=== PATIENT | male | born 1960 | race Two or more races ===

== ENCOUNTER 2021-04-07 08:13 | Outpatient (CLI) | payer OTHER | END 2021-04-07 08:14 | disposition home or self-care (01) | LOC: NUCLEAR 08:13 | PROVIDERS: ATTEND Internal Medicine Hematology & Oncology | DX: C83.35 Diffuse large B-cell lymphoma, lymph nodes of inguinal region and lower limb (principal) | CPT/HCPCS: 78816; A9552 ==

== ENCOUNTER → 2021-05-03 | Day surgery (SDC) | payer OTHER | END | disposition home or self-care (01) | LOC: ADM 04-28 08:00 → CIR.AMB 06:55 | PROVIDERS: ATTEND Specialist | DX: C83.55 Lymphoblastic (diffuse) lymphoma, lymph nodes of inguinal region and lower limb (principal); Z20.822 Contact with and (suspected) exposure to COVID-19 | CPT/HCPCS: 36561; C1751 ==

== ENCOUNTER 2021-09-27 08:56 | Outpatient (CLI) | payer OTHER | END 2021-09-27 08:57 | disposition home or self-care (01) | LOC: NUCLEAR 08:56 | PROVIDERS: ATTEND Internal Medicine Hematology & Oncology | DX: I07.2 Rheumatic tricuspid stenosis and insufficiency (principal) ==

== ENCOUNTER 2021-11-16 07:17 | Outpatient (CLI) | payer OTHER | END 2021-11-16 07:18 | disposition home or self-care (01) | LOC: NUCLEAR 07:17 | PROVIDERS: ATTEND Internal Medicine Hematology & Oncology | DX: C83.38 Diffuse large B-cell lymphoma, lymph nodes of multiple sites (principal) | CPT/HCPCS: 78812; A9552 ==

== ENCOUNTER 2022-01-09 14:40 | Outpatient (CLI) | payer OTHER | END 2022-01-09 14:46 | disposition home or self-care (01) | LOC: SONOGRAMA 14:40 | PROVIDERS: ATTEND Internal Medicine Hematology & Oncology | DX: R19.09 Other intra-abdominal and pelvic swelling, mass and lump (principal); C83.38 Diffuse large B-cell lymphoma, lymph nodes of multiple sites ==

== ENCOUNTER 2022-03-24 08:49 | Outpatient (CLI) | payer OTHER | END 2022-03-24 23:00 | disposition home or self-care (01) | LOC: LAB 08:49 | PROVIDERS: ATTEND Specialist | DX: Z53.9 Procedure and treatment not carried out, unspecified reason (principal) ==

== ENCOUNTER 2022-03-28 06:32 | Day surgery (SDC) | payer OTHER | END 2022-03-28 16:10 | disposition home or self-care (01) | LOC: CIR.AMB 06:32 | PROVIDERS: ATTEND Specialist | DX: T82.598A Other mechanical complication of other cardiac and vascular devices and implants, initial encounter (principal); C83.35 Diffuse large B-cell lymphoma, lymph nodes of inguinal region and lower limb; Z86.16 Personal history of COVID-19 ==

== ENCOUNTER 2022-06-13 08:57 | Outpatient (CLI) | payer OTHER | END 2022-06-13 08:58 | disposition home or self-care (01) | LOC: LAB 08:57 | PROVIDERS: ATTEND Radiology Diagnostic Radiology | DX: C83.38 Diffuse large B-cell lymphoma, lymph nodes of multiple sites (principal) ==

== ENCOUNTER 2022-06-28 07:12 | Outpatient (CLI) | payer OTHER | END 2022-06-28 07:24 | disposition home or self-care (01) | LOC: TOM 07:12 | PROVIDERS: ATTEND Internal Medicine Hematology & Oncology | DX: C83.38 Diffuse large B-cell lymphoma, lymph nodes of multiple sites (principal); L04.3 Acute lymphadenitis of lower limb | CPT/HCPCS: 72193; Q9965 ==

== ENCOUNTER 2022-09-05 14:57 | Outpatient (CLI) | payer OTHER | END 2022-09-05 14:59 | disposition home or self-care (01) | LOC: LAB 14:57 | PROVIDERS: ATTEND Radiology Diagnostic Radiology | DX: C83.00 Small cell B-cell lymphoma, unspecified site (principal) ==

== ENCOUNTER 2022-09-13 07:15 | Outpatient (CLI) | payer OTHER | END 2022-09-13 07:20 | disposition home or self-care (01) | LOC: MRI 07:15 | PROVIDERS: ATTEND Internal Medicine Hematology & Oncology | DX: C83.38 Diffuse large B-cell lymphoma, lymph nodes of multiple sites (principal); C83.05 Small cell B-cell lymphoma, lymph nodes of inguinal region and lower limb | CPT/HCPCS: 73723; Q9965; 73719 ==

== ENCOUNTER 2022-09-25 08:36 | Inpatient (IN) | payer OTHER ==
[~2022-09-25] VITALS: Ht 71.1 cm; Wt 92.1 kg
[2022-09-28] MEDS ORDERED: ATORVASTATIN CA20 MG (08:50)
[2022-09-28] MEDS ORDERED: TRAMADOL HCL50 MG (08:50)
[2022-09-28] MEDS ORDERED: SULINDAC200 MG (08:50)
[2022-09-28] MEDS ORDERED: GABAPENTIN300 M2 (08:50)
[2022-09-29] MEDS ORDERED: GABAPENTIN250 MG/5 M PO (13:36)
== END 2022-09-29 14:09 | disposition home or self-care (01) | DRG 841 ==
LOC: ER 08:36 → SEC-K 14:06 → MEDJ 16:46
PROVIDERS: ADMIT Internal Medicine Hematology & Oncology; ATTEND Internal Medicine Hematology & Oncology
PROC: 02HV33Z Insertion of Infusion Device into Superior Vena Cava, Percutaneous Approach (ICD-10-PCS; principal; 2022-09-26)
DX: C83.38 Diffuse large B-cell lymphoma, lymph nodes of multiple sites (principal); T79.A22A Traumatic compartment syndrome of left lower extremity, initial encounter; G89.3 Neoplasm related pain (acute) (chronic); F43.20 Adjustment disorder, unspecified; F45.42 Pain disorder with related psychological factors

== ENCOUNTER 2022-10-30 16:58 | Inpatient (IN) | payer OTHER ==
[~2022-10-30] VITALS: Ht 167.6 cm; Wt 81.6 kg
[~2022-10-30 16:58] MED LIST: ATORVASTATIN CA20 MG; GABAPENTIN250 MG/5 M PO; GABAPENTIN300 M2; SULINDAC200 MG; TRAMADOL HCL50 MG
--- NOTE | 2022-10-30 17:25 | NUR ---
PACIENTE ALERTA Y ORIENTADO X3, REFIERE TENER UN LINFOMA EN LA PIERNA I[place]QU[place]. SE OBSERVA LA MISMA CON EDEMA, ERITEMA Y SECRECIONES. SE MONITOREAN VS Y SE UBICA
--- NOTE | 2022-10-30 18:53 | NUR ---
SE RECIBE PTE ALERTA ORIENTADO X3.CONECTADO A MONITOR CARDIACO HR-88(SINUSAL).SE OLGA MUESTRAS DE LABORATORIO USANDO MEDIDAS ASEPTICAS.SE ADMINISTRAN MEDICAMENTOS GEMINI ORDEN MEDICA.PTE EVALUADO POR DR.MORALES CHE.SE ORIENTA PTE SOBRE OBJETIVO DE [place] MEDICO.MANEJADO POR YARA ALVAREZ.
[2022-10-31] MEDS ORDERED: GABAPENTIN300 M2 (15:49)
[2022-10-31] MEDS ORDERED: SULINDAC200 MG (15:49)
[2022-10-31] MEDS ORDERED: TRAMADOL HCL50 MG (15:49)
[2022-10-31] MEDS ORDERED: ATORVASTATIN CA20 MG (15:49)
[2022-11-15] MEDS ORDERED: NEURONTIN600 MG PO (09:03)
[2022-11-15] MEDS ORDERED: BENZONATATE200 M1 PO (09:03)
[2022-11-15] MEDS ORDERED: LEVOFLOXACIN750 MG PO (09:05)
[2022-11-15] MEDS ORDERED: MORPHINE S10 MG/5 ML PO (09:08)
== END 2022-11-15 09:29 | disposition home or self-care (01) | DRG 580 ==
LOC: ER 16:58 → SEC-K 19:52 → SURH 19:52
PROVIDERS: ADMIT Internal Medicine Hematology & Oncology; ATTEND Internal Medicine Hematology & Oncology
PROC: BW21YZZ Computerized Tomography (CT Scan) of Abdomen and Pelvis using Other Contrast (ICD-10-PCS; 2022-10-30)
PROC: 0JBN3ZZ Excision of Right Lower Leg Subcutaneous Tissue and Fascia, Percutaneous Approach (ICD-10-PCS; principal; 2022-11-01)
PROC: 0JBN3ZZ Excision of Right Lower Leg Subcutaneous Tissue and Fascia, Percutaneous Approach (ICD-10-PCS; 2022-11-07)
PROC: BQ34ZZZ Magnetic Resonance Imaging (MRI) of Left Femur (ICD-10-PCS; 2022-11-08)
PROC: BR4FZZZ Ultrasonography of Sacrum and Coccyx (ICD-10-PCS; 2022-11-11)
PROC: B54CZZZ Ultrasonography of Left Lower Extremity Veins (ICD-10-PCS; 2022-11-11)
DX: L03.116 Cellulitis of left lower limb (principal); C83.38 Diffuse large B-cell lymphoma, lymph nodes of multiple sites; B96.5 Pseudomonas (aeruginosa) (mallei) (pseudomallei) as the cause of diseases classified elsewhere; B95.2 Enterococcus as the cause of diseases classified elsewhere; G89.3 Neoplasm related pain (acute) (chronic); D63.0 Anemia in neoplastic disease; N50.89 Other specified disorders of the male genital organs; F43.20 Adjustment disorder, unspecified

== ENCOUNTER 2022-12-02 16:11 | Inpatient (IN) | payer OTHER ==
[~2022-12-02] VITALS: Ht 182.9 cm; Wt 83.9 kg
[~2022-12-02 16:11] MED LIST changes: +BENZONATATE200 M1 PO; +LEVOFLOXACIN750 MG PO; +MORPHINE S10 MG/5 ML PO; +NEURONTIN600 MG PO
[2022-12-02] MEDS ORDERED: DAFLONEX-XL 11300 MG PO (16:54)
[2022-12-02] MEDS ORDERED: CIPRO500 MG (16:55)
== END 2022-12-22 08:32 | disposition home or self-care (01) | DRG 871 ==
LOC: ER 16:11 → ICU-2 21:36 → ICU 12-03 01:32 → MEDJ 12-06 18:05
PROVIDERS: ADMIT Internal Medicine; ATTEND Internal Medicine
PROC: 4A12X4Z Monitoring of Cardiac Electrical Activity, External Approach (ICD-10-PCS; 2022-12-02)
PROC: 02HV33Z Insertion of Infusion Device into Superior Vena Cava, Percutaneous Approach (ICD-10-PCS; principal; 2022-12-03)
PROC: BW241ZZ Computerized Tomography (CT Scan) of Chest and Abdomen using Low Osmolar Contrast (ICD-10-PCS; 2022-12-03)
PROC: XW043E5 Introduction of Remdesivir Anti-infective into Central Vein, Percutaneous Approach, New Technology Group 5 (ICD-10-PCS; 2022-12-04)
PROC: 30243N1 Transfusion of Nonautologous Red Blood Cells into Central Vein, Percutaneous Approach (ICD-10-PCS; 2022-12-05)
PROC: B54CZZZ Ultrasonography of Left Lower Extremity Veins (ICD-10-PCS; 2022-12-09)
PROC: BQ34ZZZ Magnetic Resonance Imaging (MRI) of Left Femur (ICD-10-PCS; 2022-12-14)
PROC: BW2F1ZZ Computerized Tomography (CT Scan) of Neck using Low Osmolar Contrast (ICD-10-PCS; 2022-12-15)
DX: A41.52 Sepsis due to Pseudomonas (principal); D61.810 Antineoplastic chemotherapy induced pancytopenia; J15.1 Pneumonia due to Pseudomonas; U07.1 COVID-19; R65.21 Severe sepsis with septic shock; C83.35 Diffuse large B-cell lymphoma, lymph nodes of inguinal region and lower limb; I96 Gangrene, not elsewhere classified; L97.128 Non-pressure chronic ulcer of left thigh with other specified severity; D84.81 Immunodeficiency due to conditions classified elsewhere; D62 Acute posthemorrhagic anemia; R13.12 Dysphagia, oropharyngeal phase; D63.0 Anemia in neoplastic disease; D64.81 Anemia due to antineoplastic chemotherapy; D70.1 Agranulocytosis secondary to cancer chemotherapy; B95.2 Enterococcus as the cause of diseases classified elsewhere; R50.81 Fever presenting with conditions classified elsewhere; K12.1 Other forms of stomatitis; T45.1X5A Adverse effect of antineoplastic and immunosuppressive drugs, initial encounter; Z74.01 Bed confinement status; Z66 Do not resuscitate